=== PATIENT | female | born 1995 | race Caucasian/White ===

== ENCOUNTER 2019-03-13 18:05 | Emergency (ER) | payer OTHER ==
[~2019-03-13] VITALS: Ht 162.6 cm; Wt 97.5 kg
[2019-03-13 18:09] VITALS: Ht 162.6 cm; Wt 97.5 kg
[2019-03-13 18:44] LABS: BASOPHIL % 0.4 % (0-2); PLATELET COUNT 313 x10^3mcL (130-400)
[2019-03-13 18:50] LABS: CALCIUM 8.8 mg/dL (8.5-10.1); CHLORIDE SERUM 105 mmol/L (98-107); CREATININE SERUM 0.7 mg/dL (0.6-1.0); GFR1 > 60 mL/min; GLUCOSE SERUM 96 mg/dL (74-106); POTASSIUM SERUM 3.8 mmol/L (3.5-5.1); SODIUM SERUM 138 mmol/L (136-145)
[2019-03-13 18:54] LABS: ALBUMIN 3.4 g/dL (3.4-5.0); ALKALINE PHOSPHATASE 72 U/L (46-116); ALT/SGPT 51 U/L (14-59); AST/SGOT 14 U/L (15-37); BILIRUBIN TOTAL 0.15 mg/dL (0.20-1.00); LIPASE 78 IU/L (73-393); TOTAL PROTEIN, SERUM 7.9 g/dL (6.4-8.2)
[2019-03-13 20:02] LABS: UA SPECIFIC GRAVITY 1.015 (1.005-1.035); microscopic required? YES; urine erythrocyte TRACE (NEGATIVE)
[2019-03-13 20:49] VITALS: BP 115/66
== END 2019-03-13 20:49 | disposition home or self-care (01) ==
LOC: ED 18:05
PROVIDERS: Emergency Medicine
DX: O21.9 Vomiting of pregnancy, unspecified (principal); O23.41 Unspecified infection of urinary tract in pregnancy, first trimester; R04.2 Hemoptysis; Z3A.09 9 weeks gestation of pregnancy; Z88.6 Allergy status to analgesic agent
CPT/HCPCS: 36415